=== PATIENT | male | born 2000 | race Caucasian/White ===

== ENCOUNTER 2019-03-15 18:18 | Inpatient (IN) ==
[2019-03-15 19:41] LABS: Basophils # (auto) 0.02 K/uL (0-0.2); Basophils % (auto) 0.1 %; Eosinophils # (auto) 0.01 K/uL (0-0.5); Hematocrit (blood only) 44.4 % (42-52); Hemoglobin 15.4 g/dL (14.0-18.0); Immature Granulocytes # (auto) 0.08 K/uL (0.00-0.02); Immature Granulocytes % (auto) 0.4 %; Lymphocytes # (auto) 1.03 K/uL (1.2-3.4); Mean Corpuscular Hgb Conc 34.7 g/dL (32-36); Mean Corpuscular Volume 86.4 fL (80-100); Monocytes # (auto) 1.14 K/uL (0.11-0.59); Monocytes % (auto) 5.5 %; Neutrophils # (auto) 18.39 K/uL (1.4-6.5); Platelet Count 194 K/uL (130-400); RDW Coefficient of Variation 12.8 % (11.5-14.5); RDW Standard Deviation 40.8 fL (36.4-46.3); Red Blood Count 5.14 M/uL (4.7-6.1); White Blood Count 20.67 K/uL (4.8-10.8)
[2019-03-15 19:57] LABS: Albumin Level 4.6 gm/dl (3.4-5.0); BUN Creatinine Ratio 13.4 (10-20); Calcium 9.6 mg/dl (8.5-10.1); Creatinine Clr Calc Pharmacy 112.6 ml/min; Est GFR (African American) 140.1; Est GFR (Non-African American) 120.9; Potassium 3.9 mmol/L (3.5-5.1)
[2019-03-15 20:00] LABS: Albumin Globulin Ratio 1.5 (0.9-2); Bilirubin,Total 1.3 mg/dl (0.2-1); Total Protein 7.6 gm/dl (6.4-8.2)
[2019-03-15] MEDS ORDERED: SODIUM CHLORIDE 0.9% 1000ML 2,000 ML IV ONE (20:16)
[2019-03-15] MEDS ORDERED: KETOROLAC TROMETHAMINE 15 MG/ML VIAL IV ONE (20:16)
[2019-03-15 20:41] LABS: Appearance Urine Clear (Clear); Bilirubin Urine Negative (Negative); Blood Urine Negative (Negative); Color Urine Yellow; Glucose Urine UA Negative (Negative); Ketones Urine 1+ (Negative); Leukocyte Esterase Urine Negative (Negative); Nitrite Urine Negative (Negative); Protein Urine Negative (Negative); Specific Gravity Urine 1.019 (1.000-1.030); Urobilinogen Urine Negative (Negative); pH Urine 7.5 (4.5-7.5)
[2019-03-15] MEDS ORDERED: IOVERSOL 100ml IV PRN (20:47)
--- NOTE | 2019-03-15 21:13 | CT Scan Report ---
ABDOMEN AND PELVIS CT WITH IV CONTRAST CT DOSE: 260.26 mGy.cm HISTORY: Acute tachycardia with right lower quadrant abdominal pain diffuse abd pain rlq/flank tach y febrile TECHNIQUE: Multiaxial CT images of the abdomen and pelvis were performed following the IV administrat ion of 93 cc of Optiray 320, A dose lowering technique was utilized adhering to the principles of AL EYAD. COMPARISON STUDY: None. FINDINGS: Lung bases appear clear. No pneumatosis or pneumoperitoneum. Imaged inferior cardiac chambers are unr emarkable. Gallbladder, spleen, liver, pancreas and adrenal glands appear normal. Kidneys, ureters ar e unremarkable. Mild urinary bladder wall thickening with partial distention. Mild amount of free flu id within the dependent pelvis. Aorta and IVC are unremarkable. No adenopathy. There is no bowel obstruction. Dilated fluid-filled and inflamed appendix measures up to 9 mm transve rsely. Appendiceal wall thickening is noted with periappendiceal inflammation. Mild reactive wall thi ckening of the adjacent cecum. 4 mm appendicolith of the mid appendiceal lumen. No evidence of perfor ation or drainable fluid collection. Soft tissues are unremarkable. Bones appear intact. IMPRESSION: 1. Acute uncomplicated appendicitis with appendicolith. No evidence of perforation or drainable fluid collection. 2. No bowel obstruction or pneumoperitoneum. Electronically signed by: Francesco Gay M.D. 03/15/2019 9:11 PM
[2019-03-15] MEDS ORDERED: cefOXitin 2,000 MG/60 ML BAG IV STA (21:30)
--- NOTE | 2019-03-15 22:04 | History & Physical Report ---
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 ate some heavy spicy foods and initially felt well and started having some vague abdominal pain and over the day began to migrate in both lower quadrant and about 430 try to eat a bite of a sandwich and just not feeling well and the pain just migrated more to the right lower quadrant and came to the emergency room found to have acute nonruptured appendix with appendicolith by CT scan white count 20,000 Past medical history unremarkable except that he had a wisdom teeth and adenoids done in early age Primary Care Provider: [facility] Allergies Allergy/AdvReac Type Severity Reaction Status Date / Time No Known Allergies Allergy Unverified 11/15/17 02:04 Past Med/Surg History Social History Feels Safe at Home: Yes Smoking Status: Never smoker Review of Systems Review of Systems: All systems reviewed & are unremarkable except as noted in HPI & below Physical Exam Constitutional: WD/WN, vitals as above well developed, well nourished and average body habitus Eyes: PERRL, conjunctivae normal, anicteric sclerae ENMT: external ear and nose normal, oropharynx normal Neck: trachea midline, no thyromegaly Respiratory: normal respiratory effort, lungs clear to auscultation normal respiratory effort Auscultation: lungs clear to auscultation bilaterally Cardiovascular: RRR, no murmur, no edema Gastrointestinal (Abdomen): Inspection/Auscultation: abdomen normal to inspection Softly distended exquisite tenderness rebound right lower quadrant Musculoskeletal: no cyanosis or clubbing, extremities motor strength 5/5 Results & Data Vital Signs (Past 12 Hours) Vital Signs Temp Pulse Pulse Resp BP BP Pulse Ox 03/15/19 20:56 91 H 20 123/84 99 03/15/19 20:23 91 H 89 21 100 03/15/19 19:15 38.1 C H 91 H 20 149/73 H 93 PG Care Time/CCT Total # of Minutes Spent Total Time Spent with Patient: Total time spent is greater than 50% in coordination of care (as documented) at patient's floor/unit and/or counseling patient:
[2019-03-15] MEDS ORDERED: LABETALOL HCL IV 5 MG/ML 20ML IV PRN (22:27)
[2019-03-15] MEDS ORDERED: MEPERIDINE HCL 25 MG/ML CARP IV PRN (22:27)
[2019-03-15] MEDS ORDERED: ePHEDrine sulfate 50 MG/ML AMP IV PRN (22:27)
[2019-03-15] MEDS ORDERED: HYDROmorphone INJ 1 MG/ML SYRINGE IV PRN ×2 (22:27→23:59)
[2019-03-15] MEDS ORDERED: ATROPINE SULFATE 0.1 MG/ML 10ML SYR IV PRN (22:27)
[2019-03-15] MEDS ORDERED: PHENYLEPHRINE 100MCG/ML 5ML SYR IV PRN (22:27)
[2019-03-15] MEDS ORDERED: fentaNYL citrate 100 MCG/2 ML VIAL IV PRN (22:27)
[2019-03-15] MEDS ORDERED: ONDANSETRON INJ 2 MG/ML 2 ML VIAL IV PRN (22:27)
[2019-03-15] MEDS ORDERED: LIDOCAINE/EPINEPHRINE 1% 20 ML VIAL ONE (22:29)
[2019-03-15] MEDS ORDERED: MIDAZOLAM HCL 1 MG/ML 2ML VIAL ONE (22:30)
[2019-03-15] MEDS ORDERED: fentaNYL citrate 100 MCG/2 ML VIAL ONE ×2 (22:30→23:23)
[2019-03-15] MEDS ORDERED: ROCURONIUM BROMIDE 10 MG/ML 5 ML VIAL ONE (22:34)
[2019-03-15] MEDS ORDERED: LIDOCAINE HCL 2% 2 ML VIAL/AMP(20MG/ML) INFIL ONE (22:34)
[2019-03-15] MEDS ORDERED: PROPOFOL IV EMULSION 10 MG/ML 20 ML VIAL IV ONE (22:34)
[2019-03-15] MEDS ORDERED: ONDANSETRON INJ 2 MG/ML 2 ML VIAL ONE (22:34)
[2019-03-15] MEDS ORDERED: DEXAMETHASONE SOD INJ 4 MG/ML VIAL ONE (22:34)
[2019-03-15] MEDS ORDERED: SUCCINYLCHOLINE CHLORIDE 20 MG/ML 10 ML VIAL ONE (22:35)
[2019-03-15] MEDS ORDERED: GLYCOPYRROLATE 0.2 MG/ML VIAL ONE (22:35)
[2019-03-15] MEDS ORDERED: NEOSTIGMINE METHYLSULFATE 5 MG/5 ML SYR ONE (22:39)
--- NOTE | 2019-03-15 22:41 | Anesthesiology Consultation ---
Date of Service March 15, 2019 Assessment & Plan (1) Encounter for pre-operative examination: Chart Review Chart Review: Acceptable Risk for Surgery and Patient NOT seen in Pre Admission Testing Consults Requested none History Surgery Operation Date: 03/15/19 22:00 Proposed Procedures p Laparoscopic Appendectomy - Ted Walton MD Height/Weight Height: 5 ft 5 in Weight: 65.4 kg Allergies Allergy/AdvReac Type Severity Reaction Status Date / Time No Known Allergies Allergy Unverified 11/15/17 02:04 Medications Home Medications Medication Instructions Recorded Confirmed Last Taken PE-DM-ASA/vuxnnt-NX-CT-ASA 0.5 tab PO UD PRN 03/15/19 03/15/19 Unknown [[place] Plus Day-Night] calcium carbonate [Tums] 0 mg PO UD PRN 03/15/19 03/15/19 Unknown Active Medications Generic Name Dose Route Start Last Admin Trade Name Freq PRN Reason Stop Dose Admin Ioversol 93 ml 03/15/19 20:47 03/15/19 20:47 Optiray 320 100ml IV 03/19/19 20:46 93 ml ONCE PRN Administration Interaction Checking NPO Date Last Intake of Fluids: 03/15/19 Time Last Intake of Fluids: 17:15 Last Intake of Fluids Comment: seltzer water Date Last Intake of Solids: 03/15/19 Time Last Intake of Solids: 16:00 Last Intake of Solids Comment: tiny bite of pizza Social History Smoking Status: Never smoker Physical Exam Vital Signs Last Vital Signs Temp 38.1 C H 03/15/19 19:15 Pulse 106 H 03/15/19 22:24 Resp 26 H 03/15/19 22:24 BP 113/77 03/15/19 22:24 Pulse Ox 100 03/15/19 22:24 Testing Laboratory Results 03/15/19 19:32 03/15/19 19:32 Urine Color Yellow 03/15/19 20:30 Urine Appearance Clear (Clear) 03/15/19 20:30 Urine pH 7.5 (4.5-7.5) 03/15/19 20:30 Ur Specific [place] 1.019 (1.000-1.030) 03/15/19 20:30 Urine Protein Negative (Negative) 03/15/19 20:30 Urine Glucose (UA) Negative (Negative) 03/15/19 20:30 Urine Ketones 1+ (Negative) H 03/15/19 20:30 Urine Nitrite Negative (Negative) 03/15/19 20:30 Ur Leukocyte Esterase Negative (Negative) 03/15/19 20:30 03/15/19 20:30 Group A Streptococcus Rapid Screen - Final Throat Specimen negative for Group A Beta Strep by rapid method. Culture report to follow.
[2019-03-15] MEDS ORDERED: KETOROLAC 30 MG/ML VIAL ONE (23:34)
--- NOTE | 2019-03-15 23:37 | Post Operative Brief Note ---
PG Immediate Post Op with CF Date of Surgery March 15, 2019 Pre & Post Diagnosis Operation Date: 03/15/19 22:00 Pre-Op Diagnosis: acute appendicitis Post-Op Diagnosis: acute appendicitis I identified the patient and participated in the time-out.: Yes Procedure Operation Date: 03/15/19 22:00 Actual Procedures p Laparoscopic Appendectomy(Not Applicable) - Ted Walton MD Surgeon Ted Walton MD Iron Handler 0 Estimated Blood Loss 5 Findings Consistent with Post-Op Diagnosis Specimens Specimen Description: A: appendix
--- NOTE | 2019-03-16 00:12 | Operative Report ---
PG Post Operative Report Pre & Post Diagnosis Operation Date: 03/15/19 22:00 Pre-Op Diagnosis: acute appendicitis Post-Op Diagnosis: acute appendicitis I identified the patient and participated in the time-out.: Yes Procedure Operation Date: 03/15/19 22:00 Actual Procedures p Laparoscopic Appendectomy(Not Applicable) - Ted Walton MD The patient was brought into the operating theater general endotracheal anesthesia supine position abdomen was shaved and prepped with Betadine solution properly draped systemic antibiotics been given preoperatively a timeout was had patient was identified this point an incision was made supraumbilically approximately quarter inch long sufficient enough to enter a Veress needle followed by CO2 followed by 5 mm trocar point of entry inspected no injury identified although we had some preperitoneal insufflation and mesenteric insufflation patient was very thin we at this point under direct visualization placed a right upper quadrant 5 mm port with preemptive local analgesic attention was turned that we could see the cecum easily and the appendix was sprayed over the terminal ileum quite thickened at this point we converted the umbilical port to 11 mm by first enlarging the incision dilated in the track with a Cherrie and then placing the 5 mm under direct visualization we placed the camera right upper quadrant port to visualize its entry 5 mm area taken out there was then placed on the right visualization left lower quadrant account was placed in left lower quadrant were able then to create a window between the mesoappendix and the base of the appendix dividing it twice with blue load. This point once we had freed up the appendix sufficiently from its base we then from the cecum we then we used another reload of the purple load to divide the appendix and taken her off of the cecum hemostasis was satisfactory the terminal ileum was away from the area the appendix was placed in an Endopouch and taken out through the umbilical port we then placed the patient in reverse Trendelenburg position irrigated right lower quadrant abdominal pelvic area was suctioned a lot went back and inspected hemostasis the staple line appear satisfactory there was a just a very little if any moods are along the staple line but I thought that would stop without any event cauterized that because it is very minimal individual trochars were taken out under direct visualization unless the umbilical trocar fascial stitch 0 Vicryl was used for the umbilical port x2 [id number] 4-0 Monocryl subcuticular Steri-Strips applied procedure was tolerated well by the patient estimated blood loss 5 cc patient was taken recovery in good condition Surgeon Ted Walton MD Electronic Device Repairer 0 Estimated Blood Loss 5 Findings Consistent with Post-Op Diagnosis Specimens appendix Description of Procedure merda I attest to the content of the Intraoperative Record and any orders documented therein. Any exceptions are noted below.
--- NOTE | 2019-03-16 00:20 | Anesthesiology Progress Note ---
Date of Service March 16, 2019 Anesthesia Post Procedure Vital Signs Vital Signs: Temp Pulse Pulse Pulse Resp BP BP 03/16/19 00:15 75 17 124/53 L 03/16/19 00:05 70 14 127/60 03/15/19 23:56 36.4 C L 79 16 132/72 03/15/19 22:24 106 H 26 H 113/77 03/15/19 21:57 112 H 22 134/94 03/15/19 20:56 91 H 20 123/84 03/15/19 20:23 91 H 89 21 03/15/19 19:15 38.1 C H 91 H 20 149/73 H Pulse Ox 03/16/19 00:15 100 03/16/19 00:05 100 03/15/19 23:56 100 03/15/19 22:24 100 03/15/19 21:57 96 03/15/19 20:56 99 03/15/19 20:23 100 03/15/19 19:15 93 Pain Intensity Abdomen: Pain Intensity: 3 Transfer of Care Handoff Completed per policy Notes Mental Status: alert / awake / arousable Patient Amnestic to Procedure: Yes Nausea / Vomiting: adequately controlled Pain: adequately controlled Airway Patency, RR, SpO2: stable & adequate BP & HR: stable & adequate Hydration State: stable & adequate Anesthetic Complications: no major complications apparent and Pt Satisfied with anesthetic care
--- NOTE | 2019-03-16 00:48 | Emergency Department Note ---
Entered by Alesha Murray acting as a scribe for History of Present Illness General Chief complaint: Abdominal Pain Stated complaint: flank pain both sides, lower back pain Time Seen by Provider: 03/15/19 20:08 History of Present Illness Provider complaint: abdominal pain Onset (ago): hour(s) 8 Location: abdomen Radiation: flank (right) and other (pelvis) Pain Consistency: + other (worsening) Maximum Pain Intensity: 5 Quality: + other (shooting) Associated symptoms: + denies other symptoms (hematuria, dysuria, vomiting), + cough and + other (pain started after drinking vegetable smoothie, 3 episodes of mild diarrhea today, smell of food repulses him, enlarged lymph nodes, sore throat) The patient is a 18 year old white male w/ PMHx of alcohol intoxication who presents to the ED w/ CC of worsening abdominal pain beginning 8 hours ago. The patient states that he felt perfectly fine yesterday and this morning, but started getting shooting abdominal pain after drinking a vegetable smoothie at work. The patient states that the pain radiates to his right flank and pelvis. The patient notes that he had mild diarrhea 3 times today. The patient states that the smell of food repulses him. The patient states that he has had enlarged lymph nodes, cough and sore throat. The patient denies hematuria, dysuria, and vomiting. Home Medications Home Medications Medication Instructions Recorded Confirmed Type PE-DM-ASA/ppevxg-TH-EW-ASA 0.5 tab PO UD PRN 03/15/19 03/15/19 History [[place]re-[place] Plus Day-Night] calcium carbonate [Tums] 0 mg PO UD PRN 03/15/19 03/15/19 History Allergies Allergy/AdvReac Type Severity Reaction Status Date / Time No Known Allergies Allergy Unverified 11/15/17 02:04 Past Med/Surg History Medical History Alcohol intoxication Social History Feels Safe at Home: Yes Smoking Status: Never smoker Review of Systems See HPI for pertinent positives & negatives. and A total of 10 systems reviewed and were otherwise negative Physical Exam Vital Signs Vital Signs - 24 hr 03/15/19 19:15 03/15/19 20:23 03/15/19 20:56 Temperature 38.1 C H Temperature Source Oral Sepsis Recent Fever Within 48 Hours Yes Sepsis Action Taken by Nursing No Action Required Pulse Rate 91 H 91 H Pulse Rate [Apical] Pulse Rate [Finger] 89 91 H Pulse Rhythm Regular Pulse Rhythm [Finger] Regular Pulse Strength [Finger] Normal Respiratory Rate 20 21 20 Respiratory Effort / Characteristics Non-Labored Spontaneous Non-Labored Spontaneous Respiratory Depth Normal Normal Respiratory Pattern Regular Blood Pressure 149/73 H Blood Pressure [Left Arm] 123/84 Blood Pressure Mean 98 Blood Pressure Mean [Left Arm] 97 Blood Pressure Position [Left Arm] Pulse Oximetry 93 100 99 Oxygen Delivery Method Room Air Room Air Room Air Oxygen Flow Rate 03/15/19 21:57 03/15/19 22:24 03/15/19 23:56 Temperature 36.4 C L Temperature Source Oral Sepsis Recent Fever Within 48 Hours Sepsis Action Taken by Nursing Pulse Rate Pulse Rate [Apical] 79 Pulse Rate [Finger] 112 H 106 H Pulse Rhythm Pulse Rhythm [Finger] Regular Pulse Strength [Finger] Normal Respiratory Rate 22 26 H 16 Respiratory Effort / Characteristics Non-Labored Spontaneous Non-Labored Spontaneous Respiratory Depth Normal Normal Respiratory Pattern Regular Regular Blood Pressure Blood Pressure [Left Arm] 134/94 113/77 132/72 Blood Pressure Mean Blood Pressure Mean [Left Arm] 107 89 92 Blood Pressure Position [Left Arm] Lying Pulse Oximetry 96 100 100 Oxygen Delivery Method Room Air Room Air Oxymask Oxygen Flow Rate 10 03/16/19 00:05 03/16/19 00:15 03/16/19 00:25 Temperature Temperature Source Sepsis Recent Fever Within 48 Hours Sepsis Action Taken by Nursing Pulse Rate Pulse Rate [Apical] 70 75 67 Pulse Rate [Finger] Pulse Rhythm Pulse Rhythm [Finger] Pulse Strength [Finger] Respiratory Rate 14 17 16 Respiratory Effort / Characteristics Non-Labored Spontaneous Non-Labored Spontaneous Non-Labored Spontaneous Respiratory Depth Normal Normal Normal Respiratory Pattern Regular Regular Regular Blood Pressure Blood Pressure [Left Arm] 127/60 124/53 L 111/63 Blood Pressure Mean Blood Pressure Mean [Left Arm] 82 76 79 Blood Pressure Position [Left Arm] Pulse Oximetry 100 100 98 Oxygen Delivery Method Oxymask Room Air Room Air Oxygen Flow Rate 2 03/16/19 00:30 Temperature 36.8 C Temperature Source Oral Sepsis Recent Fever Within 48 Hours Sepsis Action Taken by Nursing Pulse Rate Pulse Rate [Apical] 71 Pulse Rate [Finger] Pulse Rhythm Pulse Rhythm [Finger] Pulse Strength [Finger] Respiratory Rate 16 Respiratory Effort / Characteristics Non-Labored Spontaneous Respiratory Depth Normal Respiratory Pattern Regular Blood Pressure Blood Pressure [Left Arm] 121/68 Blood Pressure Mean Blood Pressure Mean [Left Arm] 85 Blood Pressure Position [Left Arm] Pulse Oximetry 97 Oxygen Delivery Method Room Air Oxygen Flow Rate GENERAL: sitting up in bed, well appearing, wearing gym shorts and shirt, mild distress EYE EXAM: normal conjunctiva OROPHARYNX: no exudate, no erythema, lips, buccal mucosa, and tongue normal and mucous membranes are moist NECK: supple, no nuchal rigidity, no adenopathy, non-tender LUNGS: Clear to auscultation. Normal chest wall mechanics HEART: no murmurs, S1 normal and S2 normal ABDOMEN: RLQ tender to palpations, abdomen soft, normo-active bowel sounds, no masses, no rebound or guarding. BACK: Back is symmetrical on inspection and there is no deformity, no midline tenderness, no CVA tenderness. SKIN: no rashes and no bruising UPPER EXTREMITIES: upper extremities are grossly normal. LOWER EXTREMITIES: No pitting edema. NEURO EXAM: Normal sensorium, cranial nerves II-XII grossly intact, normal speech, no gross weakness of arms, no gross weakness of legs. Course ED COURSE: Vital signs were reviewed and showed tachycardia and fever. The patients medical record was reviewed The above diagnostic studies were performed and reviewed. ED treatments and interventions as stated above. 2010: The patient was evaluated in room B10. A complete history and physical examination was performed. 2133: Upon reevaluation, the patient is doing okay. I discussed my findings with the patient and he understands and agrees with the treatment plan. Based on the patients age, coexisting illnesses, exam and lab findings the decision to treat as an inpatient was made. The patient remained stable while under my care. The patient will be evaluated by Dr. Walton- General Surgery for further management. Consultations Consultation #1: The patient will be evaluated by Dr. Walton- General [place] for further management. Time: 21:34 Administered Medications Ioversol (Optiray 320 100ml) 93 ml IV ONCE PRN PRN Reason: Interaction Checking Stop: 03/19/19 20:46 Last Admin: 03/15/19 20:47 Dose: 93 ml Documented by: [id number] Discontinued Medications Sodium Chloride (Nss 1000ml) 2,000 mls @ 999 mls/hr IV .Q2H1M ONE Stop: 03/15/19 22:16 Last Admin: 03/15/19 20:58 Dose: 999 mls/hr Documented by: [id number] Cefoxitin Sodium (Mefoxin) 2,000 mg in 60 mls @ 100 mls/hr IV NOW STA Stop: 03/15/19 22:05 Last Admin: 03/15/19 21:55 Dose: 100 mls/hr Documented by: [id number] Ketorolac Tromethamine (Toradol) 15 mg IV NOW ONE Stop: 03/15/19 20:17 Last Admin: 03/15/19 21:03 Dose: 15 mg Documented by: [id number] Lidocaine/Epinephrine (Xylocaine/Epinephrine 1%) Confirm Administered Dose 20 ml .ROUTE .STK-MED ONE Stop: 03/15/19 22:30 Last Admin: 03/15/19 23:33 Dose: 8 ml Documented by: [id number] Medical Decision Making Differential Diagnosis Differential diagnosis: Etiologies such as biliary colic, cholecystitis, hepatitis, pancreatitis, cardiac disease, pancreatitis, gastritis, peptic ulcer disease, appendicitis, cystitis, diverticulitis, mesenteric ischemia, inflammatory bowel disease, ileus, bowel obstruction, testicular torsion, aortic pathology, shingles, as well as others were considered. Medical Records Attestation: I reviewed the patient's medical records. Home Medications Current Medication List: was personally reviewed by me Laboratory Data Attestation: I reviewed the patient's lab results. Result diagrams: 03/15/19 19:32 03/15/19 19:32 Lab Results 03/15/19 03/15/19 03/15/19 Range/Units 19:32 19:32 20:30 WBC 20.67 H (4.8-10.8) K/uL RBC 5.14 (4.7-6.1) M/uL Hgb 15.4 (14.0-18.0) g/dL Hct 44.4 (42-52) % MCV 86.4 (80-100) fL MCH 30.0 (25-34) pg MCHC 34.7 (32-36) g/dL RDW Std Deviation 40.8 (36.4-46.3) fL RDW Coeff of Paulie 12.8 (11.5-14.5) % Plt Count 194 (130-400) K/uL MPV 9.0 (7.4-10.4) fL Immature Gran % (Auto) 0.4 % Neut % (Auto) 89.0 % Lymph % (Auto) 5.0 % [place] % (Auto) 5.5 % Eos % (Auto) 0.0 % Baso % (Auto) 0.1 % Immature Gran # (Auto) 0.08 H (0.00-0.02) K/uL Neut # (Auto) 18.39 H (1.4-6.5) K/uL Lymph # (Auto) 1.03 L (1.2-3.4) K/uL [place] # (Auto) 1.14 H (0.11-0.59) K/uL Eos # (Auto) 0.01 (0-0.5) K/uL Baso # (Auto) 0.02 (0-0.2) K/uL Sodium 136 (136-145) mmol/L Potassium 3.9 (3.5-5.1) mmol/L Chloride 102 (98-107) mmol/L Carbon Dioxide 28 (21-32) mmol/L Anion Gap 6.0 (3-11) BUN 12 (7-18) mg/dl Creatinine 0.91 (0.6-1.4) mg/dl Est Cr Clr Drug Dosing 112.6 ml/min Est GFR ( Amer) 140.1 Est GFR (Non-Af Amer) 120.9 BUN/Creatinine Ratio 13.4 (10-20) Glucose 100 H (70-99) mg/dl Calcium 9.6 (8.5-10.1) mg/dl Total Bilirubin 1.3 H (0.2-1) mg/dl AST 42 H (15-37) U/L ALT 47 (12-78) U/L Alkaline Phosphatase 78 (45-117) U/L Total Protein 7.6 (6.4-8.2) gm/dl Albumin 4.6 (3.4-5.0) gm/dl Globulin 3.0 (2.5-4.0) gm/dl Albumin/Globulin Ratio 1.5 (0.9-2) Lipase 55 L (73-393) U/L Urine Color Yellow Urine Appearance Clear (Clear) Urine pH 7.5 (4.5-7.5) Ur Specific [place] 1.019 (1.000-1.030) Urine Protein Negative (Negative) Urine Glucose (UA) Negative (Negative) Urine Ketones 1+ H (Negative) Urine Blood Negative (Negative) Urine Nitrite Negative (Negative) Urine Bilirubin Negative (Negative) Urine Urobilinogen Negative (Negative) Ur Leukocyte Esterase Negative (Negative) Imaging Data Radiologist's Impression: Radiology results as stated below per my review and the radiologist's interpretation: ABDOMEN AND PELVIS CT WITH IV CONTRAST CT DOSE: 260.26 mGy.cm HISTORY: Acute tachycardia with right lower quadrant abdominal pain diffuse abd pain rlq/flank tachy febrile TECHNIQUE: Multiaxial CT images of the abdomen and pelvis were performed following the IV administration of 93 cc of Optiray 320, A dose lowering technique was utilized adhering to the principles of ALARA. COMPARISON STUDY: None. FINDINGS: Lung bases appear clear. No pneumatosis or pneumoperitoneum. Imaged inferior cardiac chambers are unremarkable. Gallbladder, spleen, liver, pancreas and ad renal glands appear normal. Kidneys, ureters are unremarkable. Mild urinary bladder wall thickening with partial distention. Mild amount of free fluid within the dependent pelvis. Aorta and IVC are unremarkable. No adenopathy. There is no bowel obstruction. Dilated fluid-filled and inflamed appendix measures up to 9 mm transversely. Appendiceal wall thickening is noted with periappendiceal inflammation. Mild reactive wall thickening of the adjacent cecum. 4 mm appendicolith of the mid appendiceal lumen. No evidence of perforation or drainable fluid collection. Soft tissues are unremarkable. Bones appear intact. IMPRESSION: 1. Acute uncomplicated appendicitis with appendicolith. No evidence of perforation or drainable fluid collection. 2. No bowel obstruction or pneumoperitoneum. Electronically signed by: Francesco Gay M.D. 03/15/2019 9:11 PM Blood Pressure Blood Pressure Findings: Elevated blood pressure Blood Pressure Disposition: further management by hospitalist TROY James Patient is a 18-year-old male who presents the ER for right lower quadrant abdominal pain. Upon arrival he is found to be febrile and tachycardic. IV was established blood work was obtained and showed a leukocytosis of 20,000. BMP was unremarkable. Bilirubin was 1.3. No significant transaminitis. Lipase was normal. UA was negative. CT abdomen pelvis confirms acute appendicitis. Patient was given IV fluids and 2 g of IV cefoxitin. Discussed with general surgery and patient was admitted and taken to the OR for acute appendicitis. Patient was updated at bedside as well. Impression & Plan Appendicitis, Abdominal pain, Leukocytosis Discharge Plan Visit Data *Final* Discharge Date/Time: 03/15/19 22:27 Chief Complaint: Abdominal Pain Stated Complaint: flank pain both sides, lower back pain Other Complaint: Flank Pain ED Provider: Bill Zarate Discharge Problem: Appendicitis, Abdominal pain, Leukocytosis Patient Disposition: Admitted As Inpatient Discharge Instructions Interventions: ED Discharge Assessment Last Done: 03/15/19 22:09 The scribe's documentation has been prepared under my direction and personally reviewed by me in its entirety. I confirm that the note above accurately reflects all work, treatment, procedures, and medical decision making performed by me.
[2019-03-16] MEDS: LACTATED RINGER'S 1,000 ML IV SCH ×2 (01:23→07:16)
[2019-03-16] MEDS: OXYCODONE/ACETAMINOPHEN 5mg/325mg TAB PO PRN ×3 (02:41→14:29)
[2019-03-16] MEDS ORDERED: INFLUENZA VIRUS QUAD VACCINE 0.5 ML SYR IM ONE (05:45)
[2019-03-16] MEDS ORDERED: INFLUENZA ADMINISTRATION CHARGE ONE (05:45)
--- NOTE | 2019-03-16 08:50 | Surgery Progress Note ---
Date of Service March 16, 2019 Assessment & Plan (1) Appendicitis: POD 1 lap appy seen with Dr. Isabelle wilson for d/c if tolerates diet Subjective no nausea, nothing to eat yet Physical Exam Gastrointestinal (Abdomen): Inspection/Auscultation: + abdominal surgical incision (clean, dry); abdomen not distended Percussion/Palpation: abdomen soft Results & Data Vital Signs (Past 12 Hours) Vital Signs Temp Pulse Pulse Resp BP Pulse Ox 03/16/19 07:07 36.7 C 85 18 112/55 L 99 03/16/19 03:55 37.1 C 93 H 16 111/56 L 95 03/16/19 02:58 37 C 65 16 107/58 L 97 03/16/19 01:55 37.2 C 80 16 116/61 96 03/16/19 01:25 36.9 C 72 16 115/66 96 03/16/19 00:55 37 C 78 16 116/57 L 94 03/16/19 00:30 36.8 C 71 16 121/68 97 03/16/19 00:25 67 16 111/63 98 03/16/19 00:15 75 17 124/53 L 100 03/16/19 00:05 70 14 127/60 100 03/15/19 23:56 36.4 C L 79 16 132/72 100 03/15/19 22:24 106 H 26 H 113/77 100 03/15/19 21:57 112 H 22 134/94 96 03/15/19 20:56 91 H 20 123/84 99 PG Care Time/CCT Total # of Minutes Spent Total Time Spent with Patient: Total time spent is greater than 50% in coordination of care (as documented) at patient's floor/unit and/or counseling patient: (1) Appendicitis Acute appendicitis type: unspecified acute appendicitis type Appendicitis type: acute appendicitis Qualified Code(s): K35.80 - Unspecified acute appendicitis
--- NOTE | 2019-03-16 09:35 | Discharge Summary ---
Date of Service March 16, 2019 Principal Diagnosis Acute appendicitis Discharge Data Allergies Allergy/AdvReac Type Severity Reaction Status Date / Time No Known Allergies Allergy Unverified 11/15/17 02:04 Consultations 03/15/19 21:31 ED Decision to Admit Stat Procedures Performed Operation Date: 03/15/19 22:00 Actual Procedures p Laparoscopic Appendectomy(Not Applicable) - Ted Walton MD Ordered Studies 03/15/19 20:16 CT abd pelvis IV con only Stat Hospital Course (1) Appendicitis: 18 y/o male presented to ED with abdominal pain. White count was 20,[address] showed appendicitis with appendicolith. He was taken to the OR for laparoscopic appendectomy and transferred to the surgical floor for overnight observation. He was able to tolerate diet and increasing activity in the morning. He was stable for discharge later in the day. Total Time Total Time Spent Total Time Spent (In Minutes): 10 Discharge Plan Discharge Items Patient Disposition: Home - Self-Care Reason For Visit: POST OP Discharge Diagnosis: appendicitis Activity: As commented below Lifting: No more than 10 pounds Bathing Comment: ok to shower Driving/Machine Use: Resume 3 days after discharge Non-emergency contact: Surgeon Call non-emergency contact if: you have any medication questions, your pain is worsening, you have a fever, your temperature is above 101.5 and your wound has increased redness Follow-up/Referrals: Ted Walton MD [Surgeon] - (Call to make an appt to be seen in 1 week) [facility] [Primary Care Provider] - Diet: Regular Addtl Attending Provider Instructions: Pending Studies at Discharge: No Stand-Alone Forms: My [facility], Work/School Release (Inpt) Medications and DC Order Prescriptions: New oxycodone-acetaminophen [Percocet] 5-325 mg tablet 1 - 2 tab PO Q4H PRN (Reason: pain, initial therapy, max 8 daily) Qty: 15 RF: 0 Continued calcium carbonate [Tums] 200 mg calcium (500 mg) Tablet,Chewable PO UD PRN (Reason: adb discomfort) RF: 0 Bere-Laurel Plus Day-Night 7.8-325 mg(d)/ 6.25-500 mg(nt) Tablet,Effervescent Sequential 0.5 tab PO UD PRN (Reason: adb discomfort) RF: 0 Discharge Orders: Discharge Order (Routine); Ordered 03/16/19 Ordered By: Bib Romano Jr Admission Data Admit Date/Time: 03/16/19 01:10 Attending Provider: Ted Walton Admit Provider: Ted Walton Primary Care Provider: [facility] Other Providers: Ted Walton
== END 2019-03-16 15:30 | disposition home or self-care (01) | DRG 343 ==
LOC: ED 18:18 → OR 22:27 → 3E 03-16 01:10
DX: K35.80 Unspecified acute appendicitis